=== PATIENT | male | born 1965 | race Caucasian/White ===

== ENCOUNTER 2019-09-05 12:24 | Observation (INO) | payer MEDICARE, SELFPAY ==
[2019-09-05] VITALS (10 sets, daily range): BP systolic 105–135; BP diastolic 58–90; PULSE 60–121; RESP 10–18; TEMP 36.3–36.7; O2SAT 96–98; BMI 39.2; BMI 39.7; BMI 39.8
--- NOTE | 2019-09-05 12:51 | RAD_ITS ---
STUDY: X-RAY CHEST REASON FOR EXAM: Male, 53 years old. SYNCOPE TECHNIQUE: Single AP portable view of the chest. COMPARISON: None. FINDINGS: The lungs are clear and expanded. There is no demonstrated pleural abnormality. Normal size heart. Normal mediastinum and yahaira. Normal visualized pulmonary arteries. Normal visualized aortic arch and descending thoracic aorta. Normal visualized thoracic spine. Normal visualized ribs, clavicles, and shoulders. There is no demonstrated abnormality of the visualized soft tissue structures of the upper abdomen. RAD/Chest 1 View (Portable) IMPRESSION: Normal x-ray examination of the chest. Electronically Signed: Jeff Post MD at 13:42 EDT Tel , Service support ,
--- NOTE | 2019-09-05 12:51 | CT_ITS ---
STUDY: CT BRAIN WITHOUT CONTRAST REASON FOR EXAM: Male, 53 years old. SYNCOPE WITH FALL HIT LEFT SIDE OF HEAD RADIATION DOSAGE (If Supplied By Facility): CTDIvol = ( 44.99 ) mGy, DLP = ( 796.11 ) mGycm TECHNIQUE: Transaxial CT imaging of the brain was performed without administration of intravenous contrast material. Individualized dose optimization techniques were used for this CT. COMPARISON: No relevant priors. FINDINGS: Normal soft tissue structures. Normal calvarium. Normal size ventricles and extra-axial spaces for the patient''s age. Normal white matter tracts of the cerebral hemispheres. Normal basal ganglia and thalami. Normal brainstem. Normal cerebellum. There is no intracranial hemorrhage. There are no findings of an acute ischemic infarction. Normal visualized paranasal sinuses. CT/Brain/Head without Contrast IMPRESSION: Normal unenhanced CT scan of the brain. Electronically Signed: Jeff Post MD at 13:23 EDT Tel , Service support ,
--- NOTE | 2019-09-05 12:52 | EKG12_ITS ---
Test Reason : SYNCOPE Blood Pressure : / mmHG Vent. Rate : 066 BPM Atrial Rate : 066 BPM P-R Int : 204 ms QRS Dur : 120 ms QT Int : 442 ms P-R-T Axes : 027 -03 040 degrees QTc Int : 463 ms Normal sinus rhythm Possible Anterior infarct , age undetermined Abnormal ECG Confirmed by CINTIA MARINO, NUSRAT ([id number]), editor trade journal JOHN MALDONADO ([id number]) on 09/11/2019 2:52:15 PM Referred By: BAILEY Confirmed By:NUSRAT CHAMBERLAIN MD
--- NOTE | 2019-09-05 12:53 | NURSING ---
NO OLD EKGS
--- NOTE | 2019-09-05 13:01 | ED.VISSUMM ---
- ER Visit Summary Date of Service: 09/05/19 Chief Complaint: [Syncope] History of Present Illness: The patient is a 53 M [presents the emergency department with a syncopal episode that he had today prior to arrival in the emergency department. Patient states that he remembers standing in the kitchen when he went to answer his phone and he passed out. Patient's girlfriend had stated that he was unconscious for a couple of minutes. Patient did hit his head on a closet door on his way down to the floor. He complains of a nauseous feeling in his head. Patient denies any neck pain. Denies any chest pain. Denies any palpitations. Patient does not have history of syncope. He does state that over the last week he has been feeling somewhat lightheaded. He denies recent illness. He does have history of diabetes, hypertension, history of pulmonary embolism but not currently anticoagulated.] Patient states that the girlfriend check his blood pressure when he passed out and it was 120 systolic. Physical Examination: [HEENT-PERRLA, EOMI. Cranial nerves II through XII grossly intact. TMs clear. Mucous membranes moist. No adenopathy. No external evidence of trauma to his head. No C-spine tenderness on palpation. Cardiovascular-regular rate and rhythm without murmur or ectopy Lungs-clear to auscultation, chest wall stable without crepitus or subcu emphysema Abdomen-normoactive bowel sounds, soft, nontender, no rebound or rigidity, no peritoneal signs. Extremities-intact ?4, normal range of motion, normal pulses, atraumatic] Test Results: EKG obtained on arrival shows sinus rhythm with a ventricular rate of 66 bpm with no acute ST segment changes noted.] CBC with differential obtained was unremarkable. Chemistries unremarkable. Troponin less than 0.015. CT scan of the brain without contrast was normal. CTA chest was negative for PE or dissection. Orthostatic vital signs were negative. Emergency Department Course and Treatment: [Patient had an IV line established on arrival and was placed on a electrical logging engineer. Patient was given normal saline.] Treatment Plan: [Admit] Disposition: [Admit] Impression: [Syncope-etiology uncertain] This note was generated with [employer] dictation software. It may contain incorrect words, spelling, and punctuation that were not noted in review of the chart prior to signing ED Disposition - Plan for ED Patient: Referrals: NOT,DEFINED [NON-STAFF] -
[2019-09-05] MEDS: 0.9% Normal Saline 1,000 ML 150 ML IV ×2 (13:02→21:50)
[2019-09-05 13:23] LABS: Absolute Lymphocyte Count 1.72 X10^3/uL (0.83-4.51); Absolute Neutrophil Count 3.3 X10^3/uL (2.0-7.7); Basophil# 0.03 X10^3/uL; Basophil% 0.5 % (0-1); Eosinophil# 0.26 X10^3/uL; Eosinophils% 4.5 % (0-5); Hematocrit 49.5 % (40-54); Hemoglobin 16.3 g/dL (13.0-16.5); Lymphocyte # 1.72 X10^3/ul (4.0); Lymphocyte % 29.5 % (19-41); Mean Corp Hgb Conc 32.9 g/dL (32-36); Mean Corpuscular Hgb 29.8 pg (27.0-32.0); Mean Corpuscular Volume 90.5 fL (80-94); Monocyte# 0.57 X10^3/uL; Monocyte% 9.8 % (0-10); NRBC Flagged by Analyzer 0 % (0-5); Neutrophil # 3.25 X10^3/uL (2.7-7.7); Neutrophil % 55.5 % (47-70); Platelet Count 210 K/mm3 (150-450); RBC Distribution Width CV 12.2 % (11.6-14.6); RBC Distribution Width SD 40.3 fl (35.1-43.9); Red Blood Count 5.47 M/mm3 (4.6-6.2); White Blood Count 5.8 K/mm3 (4.4-11.0)
[2019-09-05 13:25] LABS: Anion Gap 7 (5-15); BUN 20 mg/dL (7-18); BUN/Creat Ratio 18.5 RATIO (10-20); Calcium,Total 9.1 mg/dL (8.5-10.1); Chloride 102 mmol/L (98-107); Creatinine, Serum 1.08 mg/dL (0.70-1.30); EST Glomerular Filtration Rate 76 mL/min (>60); Est Glom Filt Rate - Afr Amer 92 mL/min (>60); Estimated Creatinine Clearance 85.22 ml/min; Glucose 131 mg/dL (74-106); Potassium 3.5 mmol/L (3.5-5.1); Sodium Level 138 mmol/L (136-145)
[2019-09-05 13:28] LABS: D-Dimer Quantitative (DVT/PE) 3.97 FEU/ug/m (0.27-0.49)
--- NOTE | 2019-09-05 13:29 | CT_ITS ---
STUDY: CTA CHEST REASON FOR EXAM: Male, 53 years old. SYNCOPE EPISODE TODAY RADIATION DOSAGE (If Supplied By Facility): CTDIvol = ( 13.58 ) mGy, DLP = ( 568.35 ) mGycm TECHNIQUE: The examination was performed with the intravenous administration of 100CC ISOVUE 370. Post-processing of the angiographic images was performed, with multiplanar reformation and 3D reconstruction. Individualized dose optimization techniques were used for this CT. COMPARISON: None. FINDINGS: Mild bilateral gynecomastia. Normal enhancement of the main pulmonary artery and right and left pulmonary arteries. Normal enhancement of the bilateral peripheral pulmonary arteries. There is no demonstrated pulmonary embolism. Normal thoracic aorta and visualized great vessels. There is no demonstrated aortic dissection. Normal heart and pericardium. Normal mediastinum. Normal hilar regions. Normal visualized trachea and bronchi. The lungs are well expanded. Normal pulmonary parenchyma. Normal pleura. Normal chest wall structures. Normal osseous structures. Status post gastric surgery. CT/CTA Chest W/WO Contrast IMPRESSION: Normal CTA chest examination, without a demonstrated pulmonary embolism or arterial dissection. Electronically Signed: Jeff Post MD at 14:21 EDT Tel , Service support ,
--- NOTE | 2019-09-05 15:03 | HP.PCM_ITS ---
Problem List (1) Syncope Status: Acute (2) Essential (primary) hypertension Status: Chronic (3) Diabetes mellitus Status: Chronic Qualifiers: Diabetes mellitus type: type 2 (4) BMI 39.0-39.9,adult Status: Chronic History of Present Illness Date of Admission: 09/05/19 Chief Complaint: Passed out The patient is a 53 year old M with past medical history single for essential hypertension, diabetes mellitus type 2 BMI of 39.2 who presented to the emergency department after passing out. Patient states he had just come back from the store was on his phone when he felt lightheaded and the next thing he remembers he was on the ground. Patient does not recall how long he was on the floor. He was apparently diagnosed with PE in February however he was taken off anticoagulation because he was not healing following surgical procedure. Patient was found to have elevated d-dimer in the ED CTA of the chest was however negative for PE. Admitted to monitored bed for subsequent management Past Medical History Past Medical History (Chronic Problems): Chronic Problems Essential (primary) hypertension (Chronic) Diabetes mellitus (Chronic) BMI 39.0-39.9,adult (Chronic) Allergies bee venom protein (honey bee) Allergy (Verified 09/05/19 12:28) Angioedema milk Allergy (Verified 09/05/19 12:28) Angioedema morphine Allergy (Verified 09/05/19 12:28) Itching Home Medications: Ambulatory Orders Medication Instructions Recorded Duloxetine HCl 30 mg PO DAILY 09/05/19 Lisinopril/Hydrochlorothiazide 1 tab PO DAILY 09/05/19 [Lisinopril-Hctz 20-25 mg Tab] Pregabalin [Lyrica] 200 mg PO TID 09/05/19 Sitagliptin Phos/Metformin HCl 1 tab PO DAILY 09/05/19 [Janumet Xr 100-1,000 mg Tablet] Smoking Status: Never smoker - *Family History Paternal History Items: Diabetes Review of Systems Constitutional: Denies: Anorexia, Chills, Fever, Night Sweats, Weight Change HEENT: Denies: Head Aches, Sinus Congestion, Sinus Drainage Cardiovascular: Reports: Syncope. Denies: Chest Pain, Orthopnea, Palpitations, Paroxysmal Noc. Dyspnea Respiratory: Denies: Cough, Shortness of breath at rest, Shortness of breath upon exertion, Sputum production Gastrointestinal: Denies: Abdominal Pain, Hematemesis, Hematochezia, Nausea, Melena, Vomiting Genitourinary: Denies: Dysuria, Frequency, Hematuria, Urgency Musculoskeletal: Denies: Joint Pain, Joint Tenderness Skin: Denies: Rash Neurological: Denies: Focal weakness, Numbness, Tingling Psychiatric: Denies: Homicidal Ideations, Suicidal Ideations Hematologic/ Lymphatic: Denies: Easy Bruising, Easy Bleeding VTE Information - Inpt Only VTE Present on Admission: No VTE Mechan Device Prophylaxis: None VTE Pharm Prophylaxis ordered?: Yes Patient Problems: Active and Suspected Problems Syncope (Acute) Objective: GENERAL: cooperative HEENT: Atraumatic; EYES; Anicteric, Normal Conjunctiva NECK; supple, normal thyroid, RESPIRATORY: Diminished to auscultation CARDIOVASCULAR: Regular S1 S2, GI: soft, normoactive bowel sounds, : No Renal angle tenderness; EXTREMITIES: No edema, no clubbing, MUSCULOSKELETAL: no muscle waisting NEURO: Awake; no lateralizing signs. SKIN: No Rash PSYCH; Flat affect - Physical Exam Vitals/I&O's: Vital Signs Temp Pulse Resp BP Pulse Ox 97.4 F L 61 16 128/80 H 98 09/05/19 12:28 09/05/19 14:41 09/05/19 14:41 09/05/19 14:41 09/05/19 14:41 Oxygen Delivery Method Room Air Weight: 127.5 kg Body Mass Index (BMI) 39.2 Laboratory Results 09/05/19 12:55: WBC 5.8, RBC 5.47, Hgb 16.3, Hct 49.5, MCV 90.5, MCH 29.8, MCHC 32.9, RDW Std Deviation 40.3, RDW Coeff of Shakira 12.2, Plt Count 210, MPV 10.0, Immature Gran % (Auto) 0.200, Neut % (Auto) 55.5, Lymph % (Auto) 29.5, [place] % (Auto) 9.8, Eos % (Auto) 4.5, Baso % (Auto) 0.5, Absolute Neuts (auto) 3.3, Absolute Lymphs (auto) 1.72, Nucleated RBC % 0 09/05/19 12:55: D-Dimer Quant (PE/DVT) 3.97 H* 09/05/19 12:55: Sodium 138, Potassium 3.5, Chloride 102, Carbon Dioxide 29.0, Anion Gap 7, BUN 20 H, Creatinine 1.08, Estim Creat Clear Calc 85.22, Est GFR (MDRD) Af Amer 92, Est GFR (MDRD) Non-Af 76, BUN/Creatinine Ratio 18.5, Glucose 131 H, Calcium 9.1, Troponin I < 0.015 Current Medications Sodium Chloride () 1,000 mls @ 150 mls/hr IV .Q6H40M [facility] Last Admin: 09/05/19 13:02 Dose: 150 mls/hr Documented by: Assessment/Plan All Active Problems Syncope (Acute) Patient is a 53-year-old gentleman presented with syncopal episode 1. Syncopal episode Do suspect vasovagal patient has however been admitted to monitored bed for continuous telemetry monitoring to rule out arrhythmia. As part of his management ordered orthostatic every shift cardiac enzymes and a 2D echo 2. Hypertension ~ blood pressure controlled, home medications continued with dose adjustment as needed 3. Diabetes mellitus type II ~Controlled/uncontrolled, patient's oral hypoglycemics held. Placed on long acting insulin, Accu-Cheks a.c. and at bedtime and covered with sliding scale insulin 4. History of previous PE ?CTA obtained on admission came back negative however with patient elevated d- dimer did order bilateral venous duplex 5. Morbid obesity with BMI of 39.2 ?Weight loss advised 6. DVT prophylaxis ~ on enoxaparin OBSV E&M: 00243 Initial observation care L3
--- NOTE | 2019-09-05 15:13 | NURSING ---
PCU SYNCOPE KITTOE
--- NOTE | 2019-09-05 15:48 | ECHOCS_ITS ---
Reason For Study: SYNCOPE Procedure This was a 2D Doppler, Color Flow transthoracic echocardiogram. The study was technically difficult. Contrast injection was performed. Exam performed portable in patient room. Left Ventricle Normal LV size. The estimated ejection fraction is 55 %. No evidence for diastolic dysfunction. No regional wall motion abnormalities noted. Right Ventricle Normal RV size. Normal systolic function. Atria Normal left atrium. Normal right atrium. No doppler evidence for ASD. Mitral Valve There is no mitral valve stenosis. No mitral valve insufficiency. Tricuspid Valve There is no tricuspid stenosis. Trivial tricuspid valve insufficiency. Unable to estimate RV systolic pressure due to insufficient tricuspid regurgitant envelope. Aortic Valve Aortic sclerosis, no stenosis. Trisinus/trileaflet aortic valve. There is no aortic stenosis. No aortic valve insufficiency. Pulmonic Valve There is no pulmonic valvular stenosis. No pulmonic valve insufficiency. Great Vessels Normal aortic root. Pericardium/Pleural No pericardial effusion. Medication Diluted definity 4.0ml given slow IV push to enhance endocardial definition. MMode/2D Measurements & Calculations LVIDd: 6.1 cm IVSd: 0.72 cm Ao root diam: 3.4 cm LVIDs: 4.7 cm LVPWd: 0.98 cm RVDd: 4.2 cm FS: 22.9 % LAV(MOD-bp): 50.4 ml LVAd ap4: 38.8 cm2 SV(MOD-sp4): 58.1 ml LAV(MOD-bp) Indexed: 20.7 ml/m2 EDV(MOD-sp4): 138.7 ml LAV(MOD-sp2): 57.0 ml EDV(sp4-el): 147.0 ml LAV(MOD-sp4): 46.0 ml LVAs ap4: 26.7 cm2 ESV(MOD-sp4): 80.6 ml ESV(sp4-el): 83.0 ml EF(MOD-sp4): 41.9 % EF(sp4-el): 43.6 % SV(sp4-el): 64.0 ml LA A4 area: 17.4 cm2 LA dimension(2D): 4.6 cm RA A4 area: 15.0 cm2 Time Measurements MV dec time: 0.24 sec Doppler Measurements & Calculations MV E max kavin: 92.9 cm/sec Lat Peak E' Kavin: 10.2 cm/sec Med Peak E' Kavin: 5.3 cm/sec MV A max kavin: 71.0 cm/sec E/E' lat: 9.1 E/E' med: 17.6 MV E/A: 1.3 Ao V2 max: 130.8 cm/sec LV V1 max: 88.3 cm/sec PA V2 max: 90.3 cm/sec Ao max P.8 mmHg LV V1 max P.1 mmHg Interpretation Summary The estimated ejection fraction is 55 %. No evidence for diastolic dysfunction. The study was technically difficult. Contrast injection was performed. Ordering Physician: Yared Natarajan Performed By: Meagan Villanueva RDCS, RVT
--- NOTE | 2019-09-05 16:10 | VDLE_ITS ---
Reason For Study: Elevated D-dimer RIGHT LEFT GSV is normal. GSV is normal. CFV is compressible, spontaneous, phasic, CFV is compressible, spontaneous, phasic, competent and demonstrates normal competent, and demonstrates normal augmentation. augmentation. FV is compressible, spontaneous, phasic, FV is compressible, spontaneous, phasic, competent and demonstrates normal competent and demonstrates normal augmentation. augmentation. POP V is compressible, spontaneous, phasic, POP V is compressible, spontaneous, phasic, competent and demonstrates normal competent and demonstrates normal augmentation. augmentation. T/P Trunk is compressible. LT PerV is compressible. PTV is compressible. Left T/P Trunk and PTV are partially RT PerV is compressible. compressible with bright intraluminal echoes. Procedure Exam performed portable in patient room. A preliminary report was called and/or faxed to [facility]. Interpretation Summary There is no evidence of right lower extremity deep vein thrombosis. Right great saphenous vein appears patent and compressible segmentally. Chronic deep venous thrombosis left tibioperoneal trunk and posterior tibial veins Patent and compressible left great saphenous vein Ordering Physician: Yared Natarajan Performed By: Fatemeh Guthrie RVT
[2019-09-05 16:26] LABS: Bedside Glucose 95 mg/dL (70-110)
[2019-09-05] MEDS: oxyCODONE 5 MG Tablet 20 MG PO (21:39)
[2019-09-05] MEDS: Pregabalin 50 MG Capsule 200 MG PO (21:39)
[2019-09-06] VITALS (8 sets, daily range): BP systolic 121–141; BP diastolic 68–89; PULSE 55–68; RESP 11–18; TEMP 36.3–36.5; O2SAT 94–97
[2019-09-06 00:56] LABS: Bedside Glucose 143 mg/dL (70-110)
[2019-09-06] MEDS: oxyCODONE 5 MG Tablet 20 MG PO ×2 (03:45→10:59)
[2019-09-06] MEDS: 0.9% Normal Saline 1,000 ML 150 ML IV ×2 (04:34→10:59)
[2019-09-06] MEDS: Pregabalin 50 MG Capsule 200 MG PO ×2 (06:42→13:54)
[2019-09-06 06:58] LABS: Absolute Lymphocyte Count 1.62 X10^3/uL (0.83-4.51); Absolute Neutrophil Count 2.2 X10^3/uL (2.0-7.7); Basophil# 0.03 X10^3/uL; Basophil% 0.6 % (0-1); Eosinophil# 0.27 X10^3/uL; Eosinophils% 5.8 % (0-5); Hematocrit 47.1 % (40-54); Hemoglobin 15.7 g/dL (13.0-16.5); Lymphocyte # 1.62 X10^3/ul (4.0); Lymphocyte % 35.1 % (19-41); Mean Corp Hgb Conc 33.3 g/dL (32-36); Mean Corpuscular Hgb 30.1 pg (27.0-32.0); Mean Corpuscular Volume 90.2 fL (80-94); Mean Platelet Vol. 9.7 fl (6.2-12.0); Monocyte# 0.47 X10^3/uL; Monocyte% 10.2 % (0-10); NRBC Flagged by Analyzer 0 % (0-5); Neutrophil # 2.22 X10^3/uL (2.7-7.7); Neutrophil % 48.1 % (47-70); Platelet Count 165 K/mm3 (150-450); RBC Distribution Width SD 39.5 fl (35.1-43.9); Red Blood Count 5.22 M/mm3 (4.6-6.2); White Blood Count 4.6 K/mm3 (4.4-11.0)
[2019-09-06 07:23] LABS: Anion Gap 5 (5-15); BUN 18 mg/dL (7-18); BUN/Creat Ratio 21.1 RATIO (10-20); Calcium,Total 8.7 mg/dL (8.5-10.1); Chloride 107 mmol/L (98-107); Creatinine, Serum 0.85 mg/dL (0.70-1.30); EST Glomerular Filtration Rate 100 mL/min (>60); Est Glom Filt Rate - Afr Amer 121 mL/min (>60); Estimated Creatinine Clearance 108.27 ml/min; Glucose 121 mg/dL (74-106); Potassium 3.3 mmol/L (3.5-5.1); Sodium Level 141 mmol/L (136-145)
[2019-09-06] MEDS: DULoxetine Hcl 30 MG Capsule PO (09:11)
[2019-09-06] MEDS: Enoxaparin 40 MG/0.4 ML Syringe SC (09:11)
[2019-09-06] MEDS: hydroCHLOROthiazide 25 MG Tablet PO (09:11)
[2019-09-06] MEDS: Lisinopril 20 MG Tablet PO (09:11)
[2019-09-06 10:56] LABS: Bedside Glucose 108 mg/dL (70-110)
[2019-09-06 11:25] LABS: Bedside Glucose 141 mg/dL (70-110)
--- NOTE | 2019-09-06 11:57 | DCINST_ITS ---
- Discharge Diagnoses Current Active Problems: Current Active and Chronic Problems Syncope (Acute) Essential (primary) hypertension (Chronic) Diabetes mellitus (Chronic) BMI 39.0-39.9,adult (Chronic) You will use the following diet at home:: Cardiac Discharge Activity: Return to Normal Activity Call your doctor if you observe: Shortness of breath, Dizziness, Fainting spells, Chest pain Allergies/Adverse Reactions: Allergies bee venom protein (honey bee) Allergy (Verified 09/05/19 12:28) Angioedema milk Allergy (Verified 09/05/19 12:28) Angioedema morphine Allergy (Verified 09/05/19 12:28) Itching Medications to take at Discharge Duloxetine HCl 30 mg PO DAILY 09/05/19 Oxycodone HCl 20 mg PO Q6H PRN PRN 09/05/19 Pregabalin [Lyrica] 200 mg PO TID 09/05/19 Sitagliptin Phos/Metformin HCl [Janumet Xr 100-1,000 mg Tablet] 1 tab PO DAILY 09/05/19 Tapentadol HCl [Nucynta ER] 150 mg PO Q12H 09/05/19 Lisinopril 20 mg PO DAILY #30 tab 09/06/19 The following prescriptions were given: Lisinopril 20 mg PO DAILY #30 tab Transmission Status: Pending to [facility] Primary Care Physician: NOT,DEFINED [NON-STAFF] - Test Results: Test results from this visit will be discussed in further detail at your follow- up appointment, if applicable. Please Follow Up With: Cammie Harris MD When: 1 Week, call to make appt/establish prior to DC Proposed Discharge Date: 09/06/19
--- NOTE | 2019-09-06 12:00 | PCM.DC.SUM ---
<Jo-Ann Preciado - Last Filed: 09/06/19 12:15> Discharge Date and Diagnosis Date of Admission: 09/05/19 Date of Discharge: 09/06/19 - Primary Discharge Diagnosis Acute Problems: Active Problems 1. Syncope 2. Hypertension 3. Type 2 diabetes mellitus with peripheral neuropathy 4. History of PE 5. Anxiety/depression 6. Morbid obesity - Secondary Discharge Diagnosis Chronic Problems: Chronic Problems Essential (primary) hypertension (Chronic) Diabetes mellitus (Chronic) BMI 39.0-39.9,adult (Chronic) Hospital Course and Treatment Imaging Results: Diagnostic Data Brain CT 09/05/19 12:51 IMPRESSION: Normal unenhanced CT scan of the brain. Electronically Signed: Jeff Post MD at 13:23 EDT Tel , Service support , Chest X-Ray 09/05/19 12:51 IMPRESSION: Normal x-ray examination of the chest. Electronically Signed: Jeff Post MD at 13:42 EDT Tel , Service support , Chest CTA 09/05/19 13:29 IMPRESSION: Normal CTA chest examination, without a demonstrated pulmonary embolism or arterial dissection. Electronically Signed: Jeff Post MD at 14:21 EDT Tel , Service support , Operations: None Procedures: 2-D Echocardiogram Summary of Care Provided: The patient is a 53 year old M admitted 09/05/2019 due to episode of passing out. 1. Syncope-unclear etiology. Work-up during admission unremarkable. Troponin negative. Orthostatic vitals negative. Patient reports episode 10 years ago which no etiology was found at that time. Brain CT unremarkable. Chest CTA negative for PE. Echocardiogram demonstrated an EF of 55%. Telemetry without arrhythmias. Patient reports forgetfulness. Recommend further evaluation and discussion with primary care provider. Referred to Dr. Harris as he does not have current local PCP. 2. Hypertension-stable. HCTZ discontinued. Continue lisinopril 20 mg daily. 3. Type 2 diabetes mellitus with peripheral neuropathy-continue home Janumet, Lyrica. 4. History of PE-patient reports this was provoked. No further reoccurrence. CTA negative as noted above. 5. Anxiety/depression-continue home duloxetine regimen. 6. Morbid obesity-encouraged diet and lifestyle modifications. Patient seen and examined prior to discharge. Physical assessment as noted below. Patient is stable for discharge with follow up recommendations as noted above. This patient was seen by ADRIA Hollingsworth under the supervision of Dr. Natarajan. - Physical Exam Vitals/I&O's: Vital Signs Temp Pulse Resp BP Pulse Ox 97.4 F L 63 18 135/68 H 96 09/06/19 09:09 09/06/19 11:04 09/06/19 09:09 09/06/19 09:09 09/06/19 09:09 Oxygen Delivery Method Room Air Weight: 285 lb 1.6 oz Body Mass Index (BMI) 39.7 Orthostatic Vital Signs Start: 09/05/19 16:01 Freq: q24h Status: Active Protocol: Activity Type Activity Date Activity User E-Sign Co-Sign Detail Recorded Client Recorded Date Recorded By Document 09/06/19 03:36 EEA [id number] 09/06/19 03:40 EEA 09/06/19 03:36 Orthostatic Vitals Standing -Blood Pressure (90/60-120/80) 141/72 H -Extremity Use Left Arm Sitting -Blood Pressure (90/60-120/80) 131/89 H -Extremity Use Left Arm Lying -Blood Pressure (90/60-120/80) 125/77 H -Extremity Use Left Arm Intake and Output for Last 24 Hours 09/04/19 09/05/19 09/06/19 23:59 23:59 23:59 Intake Total 1550.0 / 1550.0 2247.5 / 2247.5 Balance 1550.0 / 1550.0 2247.5 / 2247.5 General: Alert, Oriented x3, Cooperative HEENT: Atraumatic, PERRLA, EOMI, Normocephalic Neck: Supple, No JVD, Negative Carotid Bruits Lungs: Clear to auscultation, Normal air movement Cardiovascular: Regular rate, Regular Rhythm, Normal S1, Normal S2, No murmurs Abdomen: Bowel Sounds Present, Soft, Non Tender, Non-Distended, Obese Extremities: No clubbing, No cyanosis, No edema, Capillary Refill Less than 3 Seconds Skin: No rashes, No breakdown Musculoskeletal: No Tenderness to Palpation of Joints or Extremities Neurological: Cranial nerves II-XII grossly intact, Neuro grossly intact Psych/Mental Status: Normal Affect, Appropriate Laboratory Results 09/05/19 12:55: WBC 5.8, RBC 5.47, Hgb 16.3, Hct 49.5, MCV 90.5, MCH 29.8, MCHC 32.9, RDW Std Deviation 40.3, RDW Coeff of Shakira 12.2, Plt Count 210, MPV 10.0, Immature Gran % (Auto) 0.200, Neut % (Auto) 55.5, Lymph % (Auto) 29.5, [place] % (Auto) 9.8, Eos % (Auto) 4.5, Baso % (Auto) 0.5, Absolute Neuts (auto) 3.3, Absolute Lymphs (auto) 1.72, Nucleated RBC % 0 09/05/19 12:55: D-Dimer Quant (PE/DVT) 3.97 H* 09/05/19 12:55: Sodium 138, Potassium 3.5, Chloride 102, Carbon Dioxide 29.0, Anion Gap 7, BUN 20 H, Creatinine 1.08, Estim Creat Clear Calc 85.22, Est GFR (MDRD) Af Amer 92, Est GFR (MDRD) Non-Af 76, BUN/Creatinine Ratio 18.5, Glucose 131 H, Calcium 9.1, Troponin I < 0.015 09/05/19 16:14: POC Glucose 95 09/05/19 16:32: Troponin I < 0.015 09/05/19 18:52: Troponin I < 0.015 09/05/19 21:33: POC Glucose 143 H 09/06/19 06:39: POC Glucose 108 09/06/19 06:49: WBC 4.6, RBC 5.22, Hgb 15.7, Hct 47.1, MCV 90.2, MCH 30.1, MCHC 33.3, RDW Std Deviation 39.5, RDW Coeff of Shakira 12.0, Plt Count 165, MPV 9.7, Immature Gran % (Auto) 0.200, Neut % (Auto) 48.1, Lymph % (Auto) 35.1, [place] % (Auto) 10.2 H, Eos % (Auto) 5.8 H, Baso % (Auto) 0.6, Absolute Neuts (auto) 2.2, Absolute Lymphs (auto) 1.62, Nucleated RBC % 0 09/06/19 06:49: Sodium 141, Potassium 3.3 L, Chloride 107, Carbon Dioxide 29.0, Anion Gap 5, BUN 18, Creatinine 0.85, Estim Creat Clear Calc 108.27, Est GFR (MDRD) Af Amer 121, Est GFR (MDRD) Non-Af 100, BUN/Creatinine Ratio 21.1 H, Glucose 121 H, Calcium 8.7 09/06/19 10:52: POC Glucose 141 H Current Medications Acetaminophen (Tylenol) 650 mg PO Q6H PRN PRN PRN Reason: Pain Score 1-10/Temp > 100.7 F Al Hydroxide/Mg Hydroxide (Mylanta Ii) 30 ml PO Q6H PRN PRN PRN Reason: Gastric Burning Dextrose (D50w Syringe) 0 gm IV X1 PRN; Protocol PRN Reason: Hypoglycemia Duloxetine HCl (Cymbalta) 30 mg PO DAILY [facility] Last Admin: 09/06/19 09:11 Dose: 30 mg Documented by: Enoxaparin Sodium (Lovenox) 40 mg SC DAILY [facility] Last Admin: 09/06/19 09:11 Dose: 40 mg Documented by: Glucagon () 1 mg IM .X1 PRN PRN Reason: Hypoglycemia Hydrochlorothiazide (Hctz) 25 mg PO DAILY [facility] Last Admin: 09/06/19 09:11 Dose: 25 mg Documented by: Sodium Chloride () 1,000 mls @ 150 mls/hr IV .Q6H40M [facility] Last Admin: 09/06/19 10:59 Dose: 150 mls/hr Documented by: Insulin Human Lispro (Humalog Kwikpen (Bkc)) 0 unit SC ACHS [facility]; Protocol Last Admin: 09/06/19 10:52 Dose: Not Given Documented by: Lisinopril (Zestril) 20 mg PO DAILY [facility] Last Admin: 09/06/19 09:11 Dose: 20 mg Documented by: Magnesium Hydroxide (Milk Of Magnesia) 30 ml PO DAILY PRN PRN PRN Reason: Constipation Melatonin (Melatonin) 3 mg PO QHS PRN PRN PRN Reason: INSOMNIA Ondansetron HCl (Zofran) 4 mg IV Q8H PRN PRN PRN Reason: NAUSEA/VOMITING Oxycodone HCl (Oxyir) 20 mg PO Q6H PRN PRN PRN Reason: Pain Score 1-10/10 Last Admin: 09/06/19 10:59 Dose: 20 mg Documented by: Pregabalin (Lyrica) 200 mg PO TID [facility] Last Admin: 09/06/19 06:42 Dose: 200 mg Documented by: Promethazine HCl (Phenergan) 25 mg IM Q6H PRN PRN PRN Reason: Breakthrough Nausea/Vomiting Sodium Chloride () 10 - 40 ml IV UD PRN PRN Reason: SALINE FLUSH Discharge Diet: Low fat/ Low Cholesterol Discharge Activity: Return to Normal Activity Call your doctor if you observe: Shortness of breath, Dizziness, Fainting spells, Chest pain Home Medications: Medications to take at Discharge Duloxetine HCl 30 mg PO DAILY 09/05/19 Oxycodone HCl 20 mg PO Q6H PRN PRN 09/05/19 Pregabalin [Lyrica] 200 mg PO TID 09/05/19 Sitagliptin Phos/Metformin HCl [Janumet Xr 100-1,000 mg Tablet] 1 tab PO DAILY 09/05/19 Tapentadol HCl [Nucynta ER] 150 mg PO Q12H 09/05/19 Lisinopril 20 mg PO DAILY #30 tab 09/06/19 Following Prescrptions Were Given to Patient: Lisinopril 20 mg PO DAILY #30 tab Transmission Status: Received by [facility] Primary Care Physician: NOT,DEFINED [NON-STAFF] - Please Follow Up With: Cammie Harris MD When: 1 Week, call to make appt/establish prior to DC Disposition: Home Minutes spent on discharge:: 35 Patient Condition:: Stable Medical Necessity - Tobacco Use Smoking Status: Never smoker Meaningful Use Info Meaningful Use Diagnoses (Choose all that apply): None applicable <Yared Natarajan - Last Filed: 09/06/19 16:56> Discharge Date and Diagnosis - Secondary Discharge Diagnosis Chronic Problems: Chronic Problems Essential (primary) hypertension (Chronic) Diabetes mellitus (Chronic) BMI 39.0-39.9,adult (Chronic) Hospital Course and Treatment Summary of Care Provided: This patient was seen in conjunction with ADRIA Hollingsworth . I have independently interviewed and examined the patient and reviewed pertinent historical, laboratory, and other data. Please refer to ADRIA Hollingsworth note for details of this patient's presentation, findings, and recommendations. I have reviewed ADRIA Hollingsworth note and concur with documented findings. Patient is a 53-year-old gentleman presented with syncopal episode Hospital course: As documented above - Physical Exam Vitals/I&O's: Vital Signs Temp Pulse Resp BP Pulse Ox 97.4 F L 63 18 137/78 H 94 09/06/19 13:52 09/06/19 13:52 09/06/19 13:52 09/06/19 13:52 09/06/19 13:52 Oxygen Delivery Method Room Air Weight: 129.319 kg Body Mass Index (BMI) 39.7 Orthostatic Vital Signs Start: 09/05/19 16:01 Freq: q24h Status: Active Protocol: Activity Type Activity Date Activity User E-Sign Co-Sign Detail Recorded Client Recorded Date Recorded By Document 09/06/19 03:36 EEA [id number] 09/06/19 03:40 EEA 09/06/19 03:36 Orthostatic Vitals Standing -Blood Pressure (90/60-120/80) 141/72 H -Extremity Use Left Arm Sitting -Blood Pressure (90/60-120/80) 131/89 H -Extremity Use Left Arm Lying -Blood Pressure (90/60-120/80) 125/77 H -Extremity Use Left Arm Intake and Output for Last 24 Hours 09/04/19 09/05/19 09/06/19 23:59 23:59 23:59 Intake Total 1550.0 / 1550.0 2247.5 / 2247.5 Balance 1550.0 / 1550.0 2247.5 / 2247.5 Laboratory Results 09/05/19 16:32: Troponin I < 0.015 09/05/19 18:52: Troponin I < 0.015 09/05/19 21:33: POC Glucose 143 H 09/06/19 06:39: POC Glucose 108 09/06/19 06:49: WBC 4.6, RBC 5.22, Hgb 15.7, Hct 47.1, MCV 90.2, MCH 30.1, MCHC 33.3, RDW Std Deviation 39.5, RDW Coeff of Shakira 12.0, Plt Count 165, MPV 9.7, Immature Gran % (Auto) 0.200, Neut % (Auto) 48.1, Lymph % (Auto) 35.1, [place] % (Auto) 10.2 H, Eos % (Auto) 5.8 H, Baso % (Auto) 0.6, Absolute Neuts (auto) 2.2, Absolute Lymphs (auto) 1.62, Nucleated RBC % 0 09/06/19 06:49: Sodium 141, Potassium 3.3 L, Chloride 107, Carbon Dioxide 29.0, Anion Gap 5, BUN 18, Creatinine 0.85, Estim Creat Clear Calc 108.27, Est GFR (MDRD) Af Amer 121, Est GFR (MDRD) Non-Af 100, BUN/Creatinine Ratio 21.1 H, Glucose 121 H, Calcium 8.7 09/06/19 10:52: POC Glucose 141 H OBSV E&M: [id number] Observation care discharge
--- NOTE | 2019-09-06 12:47 | PHA.DC.MR ---
Pharmacy Service has performed discharge medication reconciliation for this patient. The patient's discharge medication list was reviewed for discrepancies and discrepancies were resolved. Home Medications Duloxetine HCl 30 mg PO DAILY 09/05/19 Oxycodone HCl 20 mg PO Q6H PRN PRN 09/05/19 Pregabalin [Lyrica] 200 mg PO TID 09/05/19 Sitagliptin Phos/Metformin HCl [Janumet Xr 100-1,000 mg Tablet] 1 tab PO DAILY 09/05/19 Tapentadol HCl [Nucynta ER] 150 mg PO Q12H 09/05/19 Lisinopril 20 mg PO DAILY #30 tab 09/06/19
== END 2019-09-06 11:58 | disposition home or self-care (01) ==
LOC: ED 13:37 → PCU 15:33
PROVIDERS: Admitting Provider Internal Medicine; Emergency Provider Emergency Medicine; Visit Provider Internal Medicine
DX: R55 Syncope and collapse (principal); E11.42 Type 2 diabetes mellitus with diabetic polyneuropathy; I10 Essential (primary) hypertension; E66.01 Morbid (severe) obesity due to excess calories; F41.9 Anxiety disorder, unspecified; F32.9 Major depressive disorder, single episode, unspecified; Z79.899 Other long term (current) drug therapy; Z68.39 Body mass index [BMI] 39.0-39.9, adult; Z86.711 Personal history of pulmonary embolism; Z79.84 Long term (current) use of oral hypoglycemic drugs; R94.31 Abnormal electrocardiogram [ECG] [EKG]
CPT/HCPCS: 36415; 70450; 71045; 71275; 80048; 82962; 84484; 85025; 85379; 93005; 93306; 93970; 96360; 96361; 96372; 99218; 99251; 99285; 99406; J7030; Q9957; Q9967; A4216; C8929; G0378; G0463

== ENCOUNTER → 2019-09-17 15:36 | Outpatient (CLI) | payer MEDICARE, SELFPAY ==
[2019-09-17 14:54] VITALS: BMI 39.4
[2019-09-17 16:46] LABS: Cholesterol 189 mg/dL (200); High Density Lipoprotein 53 mg/dL; Triglycerides 98 mg/dL; Very Low Density Lipoprotein 20 mg/dL (5-40)
[2019-09-17 16:59] LABS: Microalbumin:Creatinine Ratio 36.1 mg/g CRE (<30 mg/g CRE)
== END ==
PROVIDERS: PCP Internal Medicine; Visit Provider Internal Medicine
DX: E11.9 Type 2 diabetes mellitus without complications (principal); I10 Essential (primary) hypertension
CPT/HCPCS: 36415; 80061; 82043; 82570; 83036

== ENCOUNTER 2019-10-15 15:26 | Emergency (ER) | payer MEDICARE, SELFPAY ==
[2019-09-17 14:54] VITALS: BMI 39.4
[2019-10-15 15:27] VITALS: BP 182/91; PULSE 75; RESP 13; TEMP 36.6; O2SAT 95; BMI 39.5
--- NOTE | 2019-10-15 15:48 | RAD_ITS ---
STUDY: X-RAY CHEST REASON FOR EXAM: Male, 53 years old. PT C/O LIGHTHADED, ROOM SPINNING AND NAUSEA NOW. STATES HAD CHEST PRESSURE EARLIER WITH THESE OTHER SYMPTOMS TECHNIQUE: Single frontal view of the chest. COMPARISON: CTA chest September 05, 20192009 chest x-ray same day FINDINGS: The lungs are clear and expanded. There is no demonstrated pleural abnormality. Normal size heart. Normal mediastinum and yahaira. Normal visualized pulmonary arteries. Normal visualized aortic arch and descending thoracic aorta. Normal visualized thoracic spine. Normal visualized ribs, clavicles, and shoulders. There is no demonstrated abnormality of the visualized soft tissue structures of the upper abdomen. RAD/Chest 1 View (Portable) IMPRESSION: Normal x-ray examination of the chest. Electronically Signed: Hoang Gill MD at 16:08 EDT , Service support ,
--- NOTE | 2019-10-15 15:49 | EKG12_ITS ---
Test Reason : CP Blood Pressure : / mmHG Vent. Rate : 074 BPM Atrial Rate : 074 BPM P-R Int : 196 ms QRS Dur : 112 ms QT Int : 458 ms P-R-T Axes : 022 -14 078 degrees QTc Int : 508 ms Normal sinus rhythm Incomplete left bundle branch block Prolonged QT Abnormal ECG Confirmed by KRISH GARCÍA ([id number]), social media editor PRIYANKA BURCH ([id number]) on 10/18/2019 11:42:41 AM Referred By: Confirmed By:KRISH GARCÍA
[2019-10-15 16:01] LABS: Absolute Lymphocyte Count 1.65 X10^3/uL (0.83-4.51); Absolute Neutrophil Count 3.4 X10^3/uL (2.0-7.7); Basophil# 0.05 X10^3/uL; Basophil% 0.8 % (0-1); Eosinophil# 0.34 X10^3/uL; Eosinophils% 5.7 % (0-5); Hematocrit 48.1 % (40-54); Hemoglobin 15.7 g/dL (13.0-16.5); Lymphocyte # 1.65 X10^3/ul (4.0); Lymphocyte % 27.5 % (19-41); Mean Corp Hgb Conc 32.6 g/dL (32-36); Mean Corpuscular Hgb 30.4 pg (27.0-32.0); Mean Corpuscular Volume 93.2 fL (80-94); Mean Platelet Vol. 10.1 fl (6.2-12.0); Monocyte# 0.56 X10^3/uL; Monocyte% 9.3 % (0-10); NRBC Flagged by Analyzer 0 % (0-5); Neutrophil # 3.37 X10^3/uL (2.7-7.7); Neutrophil % 56.2 % (47-70); Platelet Count 215 K/mm3 (150-450); RBC Distribution Width CV 12.3 % (11.6-14.6); RBC Distribution Width SD 42.4 fl (35.1-43.9); Red Blood Count 5.16 M/mm3 (4.6-6.2)
--- NOTE | 2019-10-15 16:30 | ED.VIS.GEN ---
History of Present Illness Chief Complaint: Dizziness Informant: Patient Onset: Today Narrative: Patient presents the emergency room with chest pain dizziness and nausea and vomiting. Patient states he was at a store when also in the room started spinning. He developed a pressure midsternal and then vomited. He states now he has a frontal headache and still feels nauseated. He states this is happened before and he passed out. He was admitted in August and had an echocardiogram that was normal. The patient also had a head CT during that admission that was negative. Patient states that the dizziness has occurred sometimes during the night when he goes to turn has had a rollover. He states that he establish primary care and is treated for diabetes and hypertension and anxiety. He denies any ringing in the ears. He denies any other neurologic symptoms such as arm or leg weakness or sensation changes. No speech changes. No vision changes. Feels better with his eyes closed and open but that is improving. Patient does not carry list of medicines cannot really tell me what he is on. He cannot tell me his full list of medical diagnoses or who his primary care physician is. He informs me that all the information should be in the computer. Past Medical History - Allergies and Home Meds Allergies/Adverse Reactions: Allergies bee venom protein (honey bee) Allergy (Unverified 09/17/19 15:04) Angioedema milk Allergy (Verified 09/05/19 12:28) Angioedema morphine Allergy (Verified 09/05/19 12:28) Itching mud dobbers Allergy (Severe, Uncoded 09/17/19 15:04) hives type of wasp Primary Care Physician: Cammie Harris MD [Primary Care Provider] - Smoking Status: Never smoker - Family History Paternal Family History: Family History (Last Updated 09/17/19 @ 14:54 by Bridget Garcia) Other CVA (cerebral vascular accident) Cancer Diabetes Heart disease Hyperlipemia Hypertension Myocardial infarction Family History: Reports: Diabetes Review of Systems General: Denies: Chills, Fever, Sweats Eyes: Denies: Visual changes - bilaterally, Diplopia ENT: Denies: Rhinorrhea, Sore throat Cardiovascular: Reports: Chest pain. Denies: Palpitations Respiratory: Denies: Dyspnea, Cough, Dyspnea on exertion Gastrointestinal: Reports: Nausea, Vomiting. Denies: Abdominal pain, Diarrhea, Melena, Hematochezia Genitourinary: Denies: Dysuria, Hematuria, Frequency Musculoskeletal: Denies: Back pain, Extremity Pain Skin: Denies: Rash, Wounds Neurological: Reports: - - Vertiginous-like symptoms. Denies: Headache, Weakness, Numbness Physical Exam Vital Signs/Narrative: Vital Signs Temp Pulse Resp BP Pulse Ox 10/15/19 15:27 97.8 F 75 13 182/91 H 95 Inital Vital Signs reviewed: Yes General: Well nourished, Well developed, Obese, No Acute Distress Head: Normocephalic, Atraumatic Eyes: Perrl, EOMI, - - No nystagmus noted ENT: Moist mucous membranes, No rhinorrhea Neck: Supple, Nontender Cardiovascular: Regular rate, Regular rhythm, No murmurs Respiratory: No distress, CTA bilaterally, Chest nontender Abdomen: Soft, Nontender, Nondistended, Normal bowel sounds Back: Nontender, Normal Inspection Extremities: Nontender, No edema Skin: Normal color, No rash Neurological: Alert, Oriented x3, Cranial nerves II-XII grossly intact, Normal Strength, Normal Sensation Psychological: Normal affect, Normal Mood Diagnostic/Tx/Re-eval Clinical Impression(s) from Imaging Studies Chest X-Ray 10/15/19 15:48 IMPRESSION: Normal x-ray examination of the chest. Electronically Signed: Hoang Gill MD at 16:08 EDT , Service support , Laboratory Last Values WBC 6.0 K/mm3 (4.4-11.0) 10/15/19 15:40 RBC 5.16 M/mm3 (4.6-6.2) 10/15/19 15:40 Hgb 15.7 g/dL (13.0-16.5) 10/15/19 15:40 Hct 48.1 % (40-54) 10/15/19 15:40 MCV 93.2 fL (80-94) 10/15/19 15:40 MCH 30.4 pg (27.0-32.0) 10/15/19 15:40 MCHC 32.6 g/dL (32-36) 10/15/19 15:40 RDW Std Deviation 42.4 fl (35.1-43.9) 10/15/19 15:40 RDW Coeff of Shakira 12.3 % (11.6-14.6) 10/15/19 15:40 Plt Count 215 K/mm3 (150-450) 10/15/19 15:40 MPV 10.1 fl (6.2-12.0) 10/15/19 15:40 Immature Gran % (Auto) 0.500 % (0.0-0.9) 10/15/19 15:40 Neut % (Auto) 56.2 % (47-70) 10/15/19 15:40 Lymph % (Auto) 27.5 % (19-41) 10/15/19 15:40 [place] % (Auto) 9.3 % (0-10) 10/15/19 15:40 Eos % (Auto) 5.7 % (0-5) H 10/15/19 15:40 Baso % (Auto) 0.8 % (0-1) 10/15/19 15:40 Absolute Neuts (auto) 3.4 X10^3/uL (2.0-7.7) 10/15/19 15:40 Absolute Lymphs (auto) 1.65 X10^3/uL (0.83-4.51) 10/15/19 15:40 Nucleated RBC % 0 % (0-5) 10/15/19 15:40 Sodium 144 mmol/L (136-145) 10/15/19 15:40 Potassium 3.2 mmol/L (3.5-5.1) L 10/15/19 15:40 Chloride 111 mmol/L (98-107) H 10/15/19 15:40 Carbon Dioxide 27.0 mmol/L (21.0-32.0) 10/15/19 15:40 Anion Gap 6 (5-15) 10/15/19 15:40 BUN 15 mg/dL (7-18) 10/15/19 15:40 Creatinine 1.33 mg/dL (0.70-1.30) H 10/15/19 15:40 Estim Creat Clear Calc 69.20 ml/min 10/15/19 15:40 Est GFR (MDRD) Af Amer 72 mL/min (>60) 10/15/19 15:40 Est GFR (MDRD) Non-Af 60 mL/min (>60) 10/15/19 15:40 BUN/Creatinine Ratio 11.3 RATIO (10-20) 10/15/19 15:40 Glucose 101 mg/dL (74-106) 10/15/19 15:40 Calcium 8.7 mg/dL (8.5-10.1) 10/15/19 15:40 Troponin I < 0.015 ng/mL (<0.045) 10/15/19 15:40 - EKG Initial EKG Interpretation: Sinus Rhythm - EKG demonstrates a normal sinus rhythm with an incomplete left bundle branch block at a rate of 74. - Medical Decision Making Patient received IV fluids Valium and Zofran. He feels significantly improved. His headache remains frontal in nature despite Tylenol. Would appear that his history and symptoms are more consistent with a vertiginous-like episode. I do not think this represents posterior circulatory stroke. I will have him follow-up with primary care. I will write for Valium and Zofran. He was advised he may need to see ENT or neurology. ED Disposition - Plan for ED Patient: Disposition: Home or Assisted Living Diagnosis: Vertigo, Vomiting Instructions: ED BPV Vertigo Prescriptions: Diazepam [Valium] 5 mg PO Q8 PRN #15 tab PRN Reason: vertigo Prescription Printed Ondansetron [Zofran Odt] 4 mg PO Q8H PRN PRN #15 tab PRN Reason: Nausea Prescription Printed Referrals: Cammie Harris MD [Primary Care Provider] - 1 Week
[2019-10-15 16:43] LABS: Anion Gap 6 (5-15); BUN 15 mg/dL (7-18); BUN/Creat Ratio 11.3 RATIO (10-20); Calcium,Total 8.7 mg/dL (8.5-10.1); Chloride 111 mmol/L (98-107); Creatinine, Serum 1.33 mg/dL (0.70-1.30); EST Glomerular Filtration Rate 60 mL/min (>60); Est Glom Filt Rate - Afr Amer 72 mL/min (>60); Glucose 101 mg/dL (74-106); Potassium 3.2 mmol/L (3.5-5.1); Sodium Level 144 mmol/L (136-145)
[2019-10-15] MEDS: 0.9% Normal Saline 1,000 ML 999 ML IV (17:02)
[2019-10-15] MEDS: diazePAM 5 MG Tablet PO (17:03)
[2019-10-15] MEDS: Acetaminophen 500 MG Tablet 1000 MG PO (17:03)
[2019-10-15] MEDS: Ondansetron 4 MG/2 ML Vial IV (17:03)
[2019-10-15 17:40] VITALS: BP 150/75; PULSE 56; RESP 12; O2SAT 95
== END 2019-10-15 18:59 | disposition home or self-care (01) ==
PROVIDERS: Emergency Provider Emergency Medicine; PCP Internal Medicine
DX: R42 Dizziness and giddiness (principal); R11.2 Nausea with vomiting, unspecified; E66.9 Obesity, unspecified
CPT/HCPCS: 71045; 80048; 84484; 85025; 93005; 96361; 96374; 99285; J7030; A4216; J2405

== ENCOUNTER 2020-06-09 12:59 | Emergency (ER) | payer MEDICARE, SELFPAY ==
[2019-10-17 09:39] VITALS: BMI 39.5
[2020-06-09 13:00] VITALS: BP 141/93; PULSE 60; RESP 14; TEMP 36.7; O2SAT 99; BMI 39.3
--- NOTE | 2020-06-09 13:18 | ED.VIS.GEN ---
History of Present Illness Chief Complaint: Eye Problem Informant: Patient Onset: Today Context: Sudden Onset Timing: Continuous Current Severity: Mild Maximum Severity: Mild Narrative: The patient is a 54-year-old male with history of hypertension hyperlipidemia who presents to the emergency department with foreign body sensation in his right eye. Patient does not wear glasses or contacts. He states that he was sitting on his couch. He states that he had a sudden sensation that something was in his right eye. He states he looked in the mirror and saw a small black speck. He denies any visual change. He denies any trauma. His tetanus is up-to-date. He does not wear glasses or contacts. Prior similar symptoms: No Recent Illness/Hospitalization: No Past Medical History - Allergies and Home Meds Allergies/Adverse Reactions: Allergies bee venom protein (honey bee) Allergy (Verified 06/09/20 13:07) Angioedema milk Allergy (Verified 06/09/20 13:07) Angioedema morphine Allergy (Verified 06/09/20 13:07) Itching mud dobbers Allergy (Severe, Uncoded 06/09/20 13:07) hives type of wasp Primary Care Physician: Vicente Desouza MD [STAFF PHYSICIAN] - As soon as possible Prior records reviewed: Yes Past Medical History: - - Hypertension, hyperlipidemia Surgical History: noncontributory Smoking Status: Never smoker - Family History Paternal Family History: Family History (Last Reviewed 10/17/19 @ 09:36 by Jhony Cottrell) Other CVA (cerebral vascular accident) Cancer Diabetes Heart disease Hyperlipemia Hypertension Myocardial infarction Family History: Reports: Diabetes Review of Systems General: Denies: Chills, Fever, Sweats Eyes: Denies: Visual changes - bilaterally, Diplopia ENT: Denies: Rhinorrhea, Sore throat Cardiovascular: Denies: Chest pain, Palpitations Respiratory: Denies: Dyspnea, Cough, Dyspnea on exertion Gastrointestinal: Denies: Abdominal pain, Nausea, Vomiting, Diarrhea, Melena, Hematochezia Genitourinary: Denies: Dysuria, Hematuria, Frequency Musculoskeletal: Denies: Back pain, Extremity Pain Skin: Denies: Rash, Wounds Neurological: Denies: Headache, Weakness, Numbness Physical Exam Vital Signs/Narrative: Vital Signs Temp Pulse Resp BP Pulse Ox 06/09/20 13:00 98.0 F 60 14 141/93 H 99 Inital Vital Signs reviewed: Yes General: Well nourished, Well developed, No Acute Distress Head: Normocephalic, Atraumatic Eyes: Perrl, EOMI, - - There is some mild conjunctival erythema at the right lateral border. There is a small punctate foreign body that is seen visually. ENT: Moist mucous membranes, No rhinorrhea Neck: Supple, Nontender Cardiovascular: Regular rate, Regular rhythm, No murmurs Respiratory: No distress, CTA bilaterally, Chest nontender Abdomen: Soft, Nontender, Nondistended, Normal bowel sounds Back: Nontender, Normal Inspection Extremities: Nontender, No edema Skin: Normal color, No rash Neurological: Alert, Oriented x3, Cranial nerves II-XII grossly intact, Normal Strength, Normal Sensation Psychological: Normal affect, Normal Mood Diagnostic/Tx/Re-eval - Medical Decision Making The patient presents with foreign body in the right eye. Fluorescein tetracaine were instilled. Under slit-lamp examination, the foreign body is visualized. There is no evidence of globe injury. There is a small abrasion. I did try to gently bur the foreign body out. It did have a metallic click. However, I cannot get the foreign body out. I then used the corner of a 21-gauge and was able to get it loose, but not fully express the foreign body. I did not want to do any further attempts as I do feel that the risk is high. I did however discuss the patient promptly with ophthalmology, Dr. Desouza. He is going to see the patient in the office today to remove the foreign body. The patient is comfortable with this. 1. Metallic foreign body right eye ED Disposition - Plan for ED Patient: Instructions: ED Conjunctival Foreign Body, Resolved Referrals: Vicente Desouza MD [STAFF PHYSICIAN] - As soon as possible
[2020-06-09] MEDS: Tetracaine 0.5% Ophthalmic Bottle 2 DRP RIGHT EYE (13:19)
[2020-06-09] MEDS: Fluorescein 1 MG STRIP 1 STRIP RIGHT EYE (13:38)
[2020-06-09 13:59] VITALS: BP 139/84; PULSE 71; RESP 16; O2SAT 98
== END 2020-06-09 14:00 | disposition home or self-care (01) ==
LOC: ED 13:58
PROVIDERS: Emergency Provider Emergency Medicine
DX: T15.91XA Foreign body on external eye, part unspecified, right eye, initial encounter (principal); X58.XXXA Exposure to other specified factors, initial encounter
CPT/HCPCS: 99282